=== PATIENT | female | born 1950 ===

== ENCOUNTER 2024-05-06 10:04 | Outpatient (CLI) | payer OTHER | END 2024-05-06 10:19 | disposition home or self-care (01) | LOC: TOM 10:04 | PROVIDERS: ATTEND Internal Medicine Gastroenterology | DX: K57.30 Diverticulosis of large intestine without perforation or abscess without bleeding (principal); K63.5 Polyp of colon; K64.4 Residual hemorrhoidal skin tags; K64.8 Other hemorrhoids; Z12.11 Encounter for screening for malignant neoplasm of colon ==